=== PATIENT | female | born 1980 | race Caucasian/White ===

== ENCOUNTER 2024-11-14 09:13 | Emergency (ER) | payer OTHER ==
[2024-11-14 10:37] LABS: #Basophils Less than 0.03 10x3/uL (0.0-0.2); #Eosinophils 0.20 10x3/uL (0.0-0.7); #Monocytes 0.60 10x3/uL (0.11-0.59); #Neutrophils 2.59 10x3/uL (1.40-6.50); %Basophils 0.4 % (0.0-1.0); %Eosinophils 4.2 % (0.0-10.0); %Lymphocytes 27.4 % (21.0-51.0); %Monocytes 12.7 % (0.0-10.0); %Neutrophils 55.1 % (42.0-75.0); Hematocrit 38.2 % (36.0-47.0); Hemoglobin 12.2 g/dL (12.0-16.0); Mean Corpuscular Hemoglobin 29.9 pg (27.0-31.0); Mean Corpuscular Volume 93.6 fL (78.0-98.0); Platelet Count 112 10x3/uL (130-400); Red Blood Cell (RBC) Count 4.08 mill/uL (4.20-5.40); White Blood Cell (WBC) Count 4.71 10x3/uL (4.8-10.8)
[2024-11-14 10:49] LABS: ALT (SGPT) 10 U/L (Less than 34); AST (SGOT) 24 U/L (11-34); Albumin 3.1 g/dL (3.1-4.5); Alkaline Phosphatase 84 U/L (40-110); Anion Gap 11 mmol/L (10-20); BUN (Urea Nitrogen) 19 mg/dL (7.0-18.7); Bilirubin, Total 0.3 mg/dL (0.3-1.2); Calc. Creatinine Clearance 0 mL/min (70-130); Calcium 8.8 mg/dL (7.8-10.44); Carbon Dioxide 28 mmol/L (22-29); Chloride 107 mmol/L (98-107); Globulin 2.9 g/dL (2.4-3.5); Glucose 78 mg/dL (70-105); Potassium 4.2 mmol/L (3.5-5.1); Sodium 142 mmol/L (136-145)
[2024-11-14 11:18] LABS: Burr Cells SLIGHT = 2-5 cells HPF (0-1); Platelet Adequacy Comment Platelets Decreased
== END 2024-11-14 12:16 | disposition home or self-care (01) ==
LOC: ERS 09:13
DX: S00.83XA Contusion of other part of head, initial encounter (principal); W01.0XXA Fall on same level from slipping, tripping and stumbling without subsequent striking against object, initial encounter
CPT/HCPCS: 36416; 70486; 80053; 85025